=== PATIENT | male | born 1985 | race Caucasian/White ===

== ENCOUNTER 2017-02-04 07:55 | Inpatient (IN) | payer MEDICAID, OTHER ==
[2017-02-04 08:05] VITALS: BP 121/92
[2017-02-04] MEDS ORDERED: ONDANSETRON HCL INJ/PF 4 MG/2 ML SDV IV ONE (08:07)
[2017-02-04] MEDS ORDERED: NORMAL SALINE 1000 ML 1,000 ML IV ONE ×2 (08:07→09:53)
[2017-02-04] MEDS ORDERED: DIAZEPAM INJ 10 MG/2 ML DISP.SYRIN IV ONE (08:50)
[2017-02-04 08:51] LABS: HEMOGLOBIN 16.2 g/dL (13.5-17.0); HGB HCT DIFFERENCE 0.6; MEAN CORPUSCULAR HEMOGLOBIN 29.4 pg (27.0-33.4); MEAN CORPUSCULAR HGB CONC 33.8 g/dL (32.0-36.0); MEAN CORPUSCULAR VOLUME 87 fl (80-97); RED BLOOD COUNT 5.52 10^6/uL (4.35-5.55); WHITE BLOOD COUNT 26.2 10^3/uL (4.0-10.5)
--- NOTE | 2017-02-04 09:03 | ER Document Report ---
ED General - General Chief Complaint: Heat Exposure Stated Complaint: NAUSEA Notes: Patient comes to the office c/o muscle spasming, nausea, vomiting x1 day. 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 His symptoms began when he got home and started having back spasms. He has not been eating/drinking much since then due to the nausea. Pt states that he did not sleep well last night due to the spasming. Denies any pain, fever, URI, sore throat, trouble swallowing, neck pain, cough, sob, dyspnea, cp, palp, syncope, abd pain, diarrhea, dysuria, urinary retention, hematuria, loss of control of b/b, muscle weakness, numbness/tingling, or rash. TRAVEL OUTSIDE OF THE [place] IN LAST 30 DAYS: No - Related Data Allergies/Adverse Reactions: No Known Allergies Allergy (Verified 02/04/17 08:03) Home Medications: Current Home Medications No Home Medications 02/04/17 [History] Past Medical History - Social History Smoking Status: Current Every Day Smoker Family History: Reviewed & Not Pertinent Patient has suicidal ideation: No Patient has homicidal ideation: No Renal/ Medical History: Denies: Hx Peritoneal Dialysis - Immunizations Hx Diphtheria, Pertussis, Tetanus Vaccination: - unknown Review of Systems - Review of Systems Notes: REVIEW OF SYSTEMS: CONSTITUTIONAL : Denies fever, chills, or sweats. Denies recent illness. EENT: Denies eye, ear, throat, or mouth pain or symptoms. Denies nasal or sinus congestion or discharge. Denies throat, tongue, or mouth swelling or difficulty swallowing. CARDIOVASCULAR: Denies chest pain. Denies palpitations or racing or irregular heart beat. Denies ankle edema. RESPIRATORY: Denies cough, cold, or chest congestion. Denies shortness of breath, difficulty breathing, or wheezing. GASTROINTESTINAL: see hpi GENITOURINARY: Denies difficulty urinating, painful urination, burning, frequency, blood in urine, or discharge. MUSCULOSKELETAL: Denies back or neck pain or stiffness. Denies joint pain or swelling. SKIN: Denies rash, lesions or sores. HEMATOLOGIC : Denies easy bruising or bleeding. LYMPHATIC: Denies swollen, enlarged glands. NEUROLOGICAL: Denies confusion or altered mental status. Denies passing out or loss of consciousness. Denies headache. Denies weakness or paralysis or loss of use of either side. Denies problems with speech. Denies sensory loss, numbness, or tingling. Denies seizures. PSYCHIATRIC: Denies anxiety or stress. Denies depression, suicidal ideation, or homicidal ideation. ALL OTHER SYSTEMS REVIEWED AND NEGATIVE. Dictation was performed using [employer] voice recognition software Physical Exam - Vital signs Vitals: Pulse Resp BP Pulse Ox 127 H 26 H 121/92 H 99 02/04/17 08:03 02/04/17 08:03 02/04/17 08:03 02/04/17 08:03 Notes: PHYSICAL EXAMINATION: GENERAL: Well-appearing, well-nourished and in no acute respiratory distress. Pt seen with generalized spasming (mild) to arms/legs. HEAD: Atraumatic, normocephalic. EYES: Pupils equal round and reactive to light, extraocular movements intact, sclera anicteric, conjunctiva are normal. ENT: EAC clear b/l. TM's intact b/l without erythema, fluid, or perforation. Nares patent and without discharge. oropharynx clear without exudates. No tonsilar hypertrophy or erythema. Moist mucous membranes. No sinus tenderness. NECK: Normal range of motion, supple without lymphadenopathy. No meningismus/ nuchal rigidity. LUNGS: Breath sounds clear to auscultation bilaterally and equal. No wheezes rales or rhonchi. HEART: Regular rate and rhythm without murmurs, rubs, gallops. ABDOMEN: Soft, nontender, nondistended abdomen. No guarding, no rebound. No masses appreciated. Normal bowel sounds present. No CVA tenderness bilaterally. Musculoskeletal: FROM to passive/active. Strength 5+/5. Extremities: No cyanosis, clubbing, or edema b/l. Peripheral pulses 2+. Capillary refill less than 3 seconds. NEUROLOGICAL: MMSE intact. Cranial nerves grossly intact. Normal speech, normal gait. Normal sensory, motor exams. Reflexes 2+ peripherally PSYCH: Normal mood, normal affect. SKIN: Warm, Dry, normal turgor, no rashes or lesions noted. Course - Re-evaluation Re-evalutation: Patient is an afebrile 31yo male who presents with rhabdo and acute renal failure/injury based on H&P. Valium 5mg given for spasms. Fluids given IV. Consult with Dr. Cordova who accepted patient for admission to telemetry. 02/04/17 10:00 - Vital Signs Vital signs: Temp Pulse Resp BP Pulse Ox 127 H 18 121/92 H 99 02/04/17 08:03 02/04/17 08:25 02/04/17 08:03 02/04/17 08:03 - Laboratory Result Diagrams: 02/04/17 08:30 02/04/17 08:30 Laboratory results interpreted by me: 02/04/17 02/04/17 02/04/17 08:30 08:30 10:05 WBC 26.2 H Seg Neuts % (Manual) 86 H Band Neutrophils % 1 L Lymphocytes % (Manual) 10 L Abs Neuts (Manual) 22.8 H Chloride 96 L Carbon Dioxide 16 L Anion Gap 29 H BUN 41 H Creatinine 3.00 H Est GFR ( Amer) 30 L Est GFR (Non-Af Amer) 25 L Glucose 181 H Calcium 11.4 H AST 92 H Creatine Kinase 2636 H Total Protein 10.3 H Albumin 5.8 H Urine Protein 100 H Urine Ketones TRACE H Urine Blood MODERATE H Discharge - Discharge Clinical Impression: Rhabdomyolysis Qualifiers: Rhabdomyolysis type: non-traumatic Qualified Code(s): M62.82 - Rhabdomyolysis Acute kidney failure Qualifiers: Acute renal failure type: unspecified Qualified Code(s): N17.9 - Acute kidney failure, unspecified Condition: Stable Disposition: ADMITTED INPATIENT Admitting Provider: Hospitalist Unit Admitted: Telemetry
[2017-02-04 09:06] LABS: ALANINE AMINOTRANSFERASE 39 U/L (21-72); ALBUMIN 5.8 g/dL (3.5-5.0); ALKALINE PHOSPHATASE 88 U/L (38-126); ASPARTATE AMINO TRANSFERASE 92 U/L (17-59); BILIRUBIN,DIRECT 0.4 mg/dL (0.0-0.4); BILIRUBIN,TOTAL 0.7 mg/dL (0.2-1.3); BLOOD UREA NITROGEN 41 mg/dL (7-20); CALCIUM 11.4 mg/dL (8.4-10.2); CARBON DIOXIDE 16 mmol/L (22-30); CHLORIDE 96 mmol/L (98-107); GLUCOSE 181 mg/dL (75-110); POTASSIUM 4.5 mmol/L (3.6-5.0); TOTAL PROTEIN 10.3 g/dL (6.3-8.2)
[2017-02-04 09:09] LABS: BAND NEUTROPHILS % (MANUAL) 1 % (3-5); BASOPHILS % (MANUAL) 0 % (0-2); EOSINOPHILS % (MANUAL) 0 % (0-6); LYMPHOCYTES % (MANUAL) 10 % (13-45); TOTAL CELLS COUNTED 100
[2017-02-04 09:10] LABS: RBC MORPHOLOGY COMMENT NORMO-CYTIC/CHROMIC
[2017-02-04 09:19] LABS: CREATINE KINASE 2636 U/L (55-170)
[2017-02-04 09:34] LABS: ANION GAP 29 (5-19)
[2017-02-04 10:29] LABS: APPEARANCE,URINE SLIGHTLY-CLOUDY; BILIRUBIN,URINE NEGATIVE (NEGATIVE); GLUCOSE, URINE NEGATIVE (NEGATIVE); KETONES,URINE TRACE mg/dL (NEGATIVE); LEUKOCYTE ESTERASE,URINE NEGATIVE (NEGATIVE); NITRITE,URINE NEGATIVE (NEGATIVE); PROTEIN,URINE 100 mg/dL (NEGATIVE); URINE SPECIFIC GRAVITY 1.021; UROBILINOGEN,URINE NEGATIVE mg/dL (<2.0)
[2017-02-04] MEDS ORDERED: ACETAMINOPHEN 325 MG TABLET PO PRN (10:40)
[2017-02-04] MEDS ORDERED: ONDANSETRON HCL INJ/PF 4 MG/2 ML SDV IV PRN (10:40)
[2017-02-04] MEDS ORDERED: OXYCODONE-ACETAMINOPHEN 5-325 MG TABLET PO PRN (10:40)
--- NOTE | 2017-02-04 11:39 | PDOC H&P ---
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 Patient is accompanied by his . Each of them state that the patient's symptoms began last night. 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 He began experiencing nausea with vomiting unfortunately has persisted through the night into today. States he was drinking copious water and Gatorade to keep himself hydrated as he usually does. Today's temperatures were high of 84 and the patient had been outside all day. In the emergency room the patient received a liter of fluid. Initially was found to be tachycardic at 127. No EKG was yet done however it is reported that on the monitor he was in sinus tachycardia. No future recorded at the time of my visit. Auditory data showed creatinine of 3 and a CK of 2636. White blood cell count was elevated at 23. Past Medical History Medical History: None Past Surgical History Past Surgical History: Reports: None Social History Smoking Status: Current Every Day Smoker - Smoking for the last 10 years about one half pack per day Cigarettes Packs Per Day: 0.5 Hx Recreational Drug Use: Yes Drugs: Marijuana - Advance Directive Resuscitation Status: Full Code Family History Family History: None Parental Family History Reviewed: Yes Children Family History Reviewed: Yes Sibling(s) Family History Reviewed.: Yes Medication/Allergy Home Medications: No Home Medications 02/04/17 Allergies/Adverse Reactions: No Known Allergies Allergy (Verified 02/04/17 08:03) Review of Systems Review of Systems: Review of systems is significant as per the HPI in addition to this the patient admits to soreness all over, chills, feeling flushed. He denies chest pain or shortness of breath. Blood in stool, blood in urine, coughing up blood, throwing up blood. Any dysuria, unexplained weight loss or weight gain, diarrhea, constipation, heat or cold intolerance. Physical Exam Vital Signs: Temp Pulse Resp BP Pulse Ox 127 H 18 121/92 H 99 02/04/17 08:03 02/04/17 08:25 02/04/17 08:03 02/04/17 08:03 Physical exam: General: This well-developed well-nourished appearing white male resting in bed currently in no acute distress, but appearing a bit uncomfortable. Heart: Regular rate and rhythm. No murmurs rubs or gallops. Lungs: Clear to auscultation bilaterally with equal rise and fall of chest. Abdomen: Nontender nondistended normoactive bowel sounds. Extremities: No clubbing cyanosis or edema. 2+ dorsalis pedis and posterior tibialis pulses bilaterally. Neuro: He is awake alert oriented cranial nerves are grossly intact. The patient is having some muscle shakes or twitches. Assessment & Plan - Diagnosis (1) Heat exhaustion due to water depletion Plan: Patient certainly meets criteria for heat exhaustion. He was working outside and temperatures in the 80s on mild today however, I do not believe he stayed appropriately hydrated. Although he was drinking water and Gatorade he clearly is volume depleted with dehydration and acute renal failure. Currently afebrile. Symptomatic treatment will be given. (2) Muscle cramps Plan: Secondary to #1. Symptomatic treatment with hydration. Muscle Relaxants. (3) Acute kidney failure Qualifiers: Acute renal failure type: unspecified Qualified Code(s): N17.9 - Acute kidney failure, unspecified Plan: Continue hydration with normal saline solution at 150 cc an hour. Repeat labs in the morning. (4) Rhabdomyolysis Qualifiers: Rhabdomyolysis type: non-traumatic Qualified Code(s): M62.82 - Rhabdomyolysis Plan: Rhabdomyolysis is mild comparatively speaking. Continue symptomatic treatment, continue resuscitative fluids. Recheck CK in the morning. (5) Leukocytosis Plan: Likely due to volume contraction. Continue IV fluids and reevaluate in the morning. - Time Time Spent: 50 to 70 Minutes - Inpatient Certification Medical Necessity: Need For IV Fluids
[2017-02-04] MEDS: NORMAL SALINE 1000 ML 1,000 ML IV PRN ×2 (11:40→14:49)
[2017-02-04] MEDS ORDERED: METAXALONE 800 MG TABLET PO PRN (11:41)
--- NOTE | 2017-02-04 15:34 | Progress Note ---
Provider Note Provider Note: The phone call from the nursing staff in the ER stating that the patient wanted to leave AMA. I went down to speak with them and he states that this is happened to him before many times to the nurse. The patient had told me during our original conversation at this and never happened to him before. I explained to him that he has acute renal failure due to dehydration from heat exhaustion. I explained that he needed to stay to continue to receive IV fluids and that his kidney function will be further declining. I explained that he would need proper evaluation to make sure his kidney function came back to normal and that in addition to receiving IV fluids that we could offer monitoring of his kidney function. The patient is insistent that he would like to go home,stating that he feels much better and that he can continue to drink fluids at home. I have advised him that he should follow-up at an urgent care facility to at least have his renal function reevaluated. Patient does not have a primary care physician. After our Discussion the patient decided to leave AMA.
--- NOTE | 2017-02-05 09:46 | EKG REPORT ---
SEVERITY:- ABNORMAL ECG - SINUS RHYTHM CONSIDER LEFT VENTRICULAR HYPERTROPHY : Confirmed by: Amirah Devlin 05-Feb-2017 09:44:59
== END 2017-02-04 15:30 | disposition left against medical advice (07) | DRG 923 ==
LOC: ER 07:55 → EH 10:26 → UNDOADMIN 10:26 → EH 10:41
PROVIDERS: ADMIT Hospitalist; ATTEND Hospitalist
DX: T67.3XXA Heat exhaustion, anhydrotic, initial encounter (principal); N17.9 Acute kidney failure, unspecified; M62.82 Rhabdomyolysis; F17.210 Nicotine dependence, cigarettes, uncomplicated; F12.90 Cannabis use, unspecified, uncomplicated; D72.829 Elevated white blood cell count, unspecified; E86.0 Dehydration; X58.XXXA Exposure to other specified factors, initial encounter; Y93.H3 Activity, building and construction; Y92.008 Other place in unspecified non-institutional (private) residence as the place of occurrence of the external cause; Y99.0 Civilian activity done for income or pay
CPT/HCPCS: 36415; 80053; 81001; 82550; 85025; 93005; 93010; 96361; 96374; 96375; 99284; J2405; J3360; J7030